=== PATIENT | female | born 1975 | race African-American/Black ===

== ENCOUNTER 2021-04-07 15:22 | Emergency (ER) | payer MEDICAID, MEDICARE ==
[~2021-04-07] VITALS: Ht 167.6 cm; Wt 95.0 kg
[2021-04-07 15:33] VITALS: BP 126/84
[2021-04-07] MEDS ORDERED: HYDROCODONE/ACETAMINOPHEN 5/325MG TABLET PO STA (16:04)
== END 2021-04-07 16:11 | disposition left against medical advice (07) ==
LOC: ER 15:22
DX: S09.93XA Unspecified injury of face, initial encounter (principal); Z98.890 Other specified postprocedural states; Z88.0 Allergy status to penicillin; X58.XXXA Exposure to other specified factors, initial encounter; Y93.89 Activity, other specified; Y92.89 Other specified places as the place of occurrence of the external cause; Y99.8 Other external cause status
CPT/HCPCS: 99281

== ENCOUNTER 2021-05-31 03:01 | Emergency (ER) | payer OTHER ==
[~2021-05-31] VITALS: Ht 167.6 cm; Wt 91.0 kg
[2021-05-31 05:19] LABS: BASOPHILS % 1.2 % (0.0-2.0); EOSINOPHILS % 7.4 % (0.0-5.0); HEMATOCRIT. 41.8 % (36.0-48.0); HEMOGLOBIN. 13.9 g/dL (12.0-16.0); LYMPHOCYTES % 45.9 % (20.0-50.0); MEAN CORPUSCULAR HEMOGLOBIN 29.7 pg (28.0-32.0); MEAN CORPUSCULAR VOLUME 89.1 fL (81.0-99.0); MEAN PLATELET VOLUME 7.8 fl (7.4-10.4); MONOCYTES % 8.8 % (2.0-8.0); NEUTROPHILS % 36.7 % (40.0-76.0); PLATELET 353 x1000/uL (130-400); RED CELL DISTRIBUTION WIDTH 16.7 % (11.6-14.6)
[2021-05-31 05:21] LABS: CHLORIDE 107 mEq/L (98-107)
[2021-05-31] MEDS ORDERED: ONDA4TAB5 PO (05:53)
[2021-05-31] MEDS ORDERED: TOPUD PO (05:53)
[2021-05-31 06:03] VITALS: BP 112/84
== END 2021-05-31 06:04 | disposition home or self-care (01) ==
LOC: ER 03:01
DX: U07.1 COVID-19 (principal); M32.9 Systemic lupus erythematosus, unspecified; I10 Essential (primary) hypertension; Z88.3 Allergy status to other anti-infective agents; Z86.19 Personal history of other infectious and parasitic diseases; Z98.890 Other specified postprocedural states
CPT/HCPCS: 36415; 71045; 80053; 85025; 87426; 93005; 99285

== ENCOUNTER 2021-06-01 20:52 | Emergency (ER) | payer MEDICARE, OTHER ==
[~2021-06-01 20:52] MED LIST: ONDA4TAB5 PO; TOPUD PO
== END 2021-06-02 01:33 | disposition left against medical advice (07) ==
LOC: ER 20:52
DX: Z53.21 Procedure and treatment not carried out due to patient leaving prior to being seen by health care provider (principal)

== ENCOUNTER 2021-10-23 10:00 | Emergency (ER) | payer MEDICARE, OTHER ==
[~2021-10-23] VITALS: Ht 170.2 cm; Wt 70.0 kg
[2021-10-23 11:06] VITALS: BP 127/79
[2021-10-23] MEDS ORDERED: LIDOCAINE 5% PATCH TOP STA (11:26)
[2021-10-23] MEDS ORDERED: IBUPROFEN 400MG TABLET PO ONE (11:30)
[2021-10-23] MEDS ORDERED: ACETAMINOPHEN 325MG TABLET PO ONE (11:30)
[2021-10-23] MEDS ORDERED: TOPUD PO (11:36)
[2021-10-23] MEDS ORDERED: TOPUD MT (11:36)
[2021-10-23] MEDS ORDERED: IBUP-2028 MT (11:36)
[2021-10-23] MEDS ORDERED: LIDO700A30 TP (11:37)
== END 2021-10-23 19:00 | disposition home or self-care (01) ==
LOC: ER 10:49
DX: M79.601 Pain in right arm (principal); I10 Essential (primary) hypertension; M32.9 Systemic lupus erythematosus, unspecified; E03.9 Hypothyroidism, unspecified; Z86.19 Personal history of other infectious and parasitic diseases
CPT/HCPCS: 73030; 93005; 99284

== ENCOUNTER 2023-11-06 22:22 | Emergency (ER) | payer MEDICARE, MEDICAID ==
[~2023-11-06] VITALS: Ht 167.6 cm; Wt 97.0 kg
[~2023-11-06 22:22] MED LIST changes: +IBUP-2028 MT; +LIDO700A30 TP; +TOPUD MT
[2023-11-06 22:41] VITALS: O2SAT 96
[2023-11-06 23:28] LABS: BASOPHILS % 1.2 % (0.0-2.0); EOSINOPHILS % 9.5 % (0.0-5.0); HEMATOCRIT. 41.1 % (36.0-48.0); HEMOGLOBIN. 13.9 g/dL (12.0-16.0); LYMPHOCYTES % 29.1 % (20.0-50.0); MEAN CORPUSCULAR HEMOGLOBIN 31.9 pg (28.0-32.0); MEAN CORPUSCULAR HGB CONC 33.7 g/dL (31.0-37.0); MEAN CORPUSCULAR VOLUME 94.6 fL (81.0-99.0); MEAN PLATELET VOLUME 7.3 fl (7.4-10.4); MONOCYTES % 10.9 % (2.0-8.0); NEUTROPHILS % 49.3 % (40.0-76.0); PLATELET 310 x1000/uL (130-400); RED BLOOD CELL COUNT 4.35 mill/uL (4.2-5.4); RED CELL DISTRIBUTION WIDTH 14.5 % (11.6-14.6); WHITE BLOOD COUNT 5.1 x1000/uL (4.5-11.0)
[2023-11-06 23:38] LABS: CHLORIDE 110 mEq/L (98-107); POTASSIUM 3.8 mEq/L (3.5-5.1); SODIUM 140 mEq/L (136-145)
[2023-11-06 23:39] LABS: CARBON DIOXIDE 23 mEq/L (21-32)
[2023-11-06 23:44] LABS: GLUCOSE 86 mg/dL (70-105); UREA NITROGEN BLOOD 14 mg/dL (9-23)
[2023-11-07 00:39] LABS: HCG SCREEN NEGATIVE
[2023-11-07 02:28] VITALS: BP 140/82; PULSE 82; RESP 16; TEMP 99
== END 2023-11-07 02:47 | disposition home or self-care (01) ==
LOC: ER 22:22
DX: M79.89 Other specified soft tissue disorders (principal); I10 Essential (primary) hypertension; Z88.0 Allergy status to penicillin; Z98.890 Other specified postprocedural states; Z86.39 Personal history of other endocrine, nutritional and metabolic disease
CPT/HCPCS: 36415; 71045; 80048; 84703; 85025; 93970; 99284

== ENCOUNTER 2024-08-29 21:09 | Emergency (ER) | payer OTHER, MEDICAID ==
[~2024-08-29] VITALS: Ht 172.7 cm; Wt 60.0 kg
[~2024-08-29 21:09] MED LIST changes: +METO25TA6 MT
[2024-08-29 21:11] VITALS: O2SAT 100
[2024-08-29 21:18] VITALS: BP 144/97; PULSE 81; RESP 16; TEMP 36.6; O2SAT 100
[2024-08-29 21:46] LABS: BASOPHILS % 1.7 % (0.0-2.0); EOSINOPHILS % 4.9 % (0.0-5.0); HEMATOCRIT. 46.8 % (36.0-48.0); HEMOGLOBIN. 15.3 g/dL (12.0-16.0); LYMPHOCYTES % 49.2 % (20.0-50.0); MEAN CORPUSCULAR HEMOGLOBIN 31.1 pg (28.0-32.0); MEAN CORPUSCULAR HGB CONC 32.7 g/dL (31.0-37.0); MEAN CORPUSCULAR VOLUME 95.1 fL (81.0-99.0); MEAN PLATELET VOLUME 7.7 fl (7.4-10.4); MONOCYTES % 8.2 % (2.0-8.0); PLATELET 365 x1000/uL (130-400); RED BLOOD CELL COUNT 4.92 mill/uL (4.2-5.4); RED CELL DISTRIBUTION WIDTH 13.7 % (11.6-14.6); WHITE BLOOD COUNT 6.6 x1000/uL (4.5-11.0)
[2024-08-29 21:51] LABS: CHLORIDE 108 mEq/L (98-107); POTASSIUM 4.3 mEq/L (3.5-5.1); SODIUM 143 mEq/L (136-145)
[2024-08-29 21:52] LABS: CALCIUM 10.1 mg/dL (8.7-10.4); CARBON DIOXIDE 30 mEq/L (21-32)
[2024-08-29 21:57] LABS: GLUCOSE 90 mg/dL (70-105); UREA NITROGEN BLOOD 12 mg/dL (9-23)
[2024-08-29 22:40] LABS: CLARITY URINE CLOUDY (CLEAR); COLOR URINE YELLOW (YELLOW); GLUCOSE URINE NEGATIVE (NEGATIVE); KETONES URINE TRACE (NEGATIVE); LEUKOCYTE ESTERASE URINE 1+ (NEGATIVE); NITRITE URINE NEGATIVE (NEGATIVE); OCCULT BLOOD URINE NEGATIVE (NEGATIVE); PH URINE 6.5 (4.5-8.0); PROTEIN URINE NEGATIVE (NEGATIVE); SPECIFIC GRAVITY URINE 1.023 (1.005-1.030)
[2024-08-29 22:56] LABS: BACTERIA URINE TRACE; RBC URINE NONE SEEN /hpf (0-2); SQUAMOUS EPITHELIAL CELL URINE 1+ /lpf (RARE/1+)
[2024-08-30 00:37] LABS: ALANINE AMINOTRANSFERASE 31 IU/L (10-49)
[2024-08-30 00:38] LABS: ALBUMIN 4.1 g/dL (3.2-4.8); ASPARTATE AMINOTRANSFERASE 29 IU/L (<34); BILIRUBIN DIRECT < 0.1 mg/dL (<=3.0); BILIRUBIN TOTAL 0.3 mg/dL (0.1-1.0); CREATINE KINASE 289 IU/L (34-145); PROTEIN TOTAL 6.9 g/dL (6.0-8.3)
[2024-08-30] MEDS: KETOROLAC 30MG/ML VIAL IM ONE (00:39)
== END 2024-08-30 01:39 | disposition left against medical advice (07) ==
LOC: ER 22:28
DX: M06.9 Rheumatoid arthritis, unspecified (principal); I10 Essential (primary) hypertension; E03.9 Hypothyroidism, unspecified; Z88.0 Allergy status to penicillin
CPT/HCPCS: 99283; 80076; 80048; 81003; 82550; 85025; 36415; 96372; J1885

== ENCOUNTER 2024-10-18 16:20 | Emergency (ER) | payer OTHER, MEDICAID ==
[~2024-10-18] VITALS: Ht 167.6 cm; Wt 91.0 kg
[2024-10-18 18:18] LABS: BASOPHILS % 1.1 % (0.0-2.0); EOSINOPHILS % 5.7 % (0.0-5.0); HEMATOCRIT. 46.2 % (36.0-48.0); HEMOGLOBIN. 15.7 g/dL (12.0-16.0); LYMPHOCYTES % 8.7 % (20.0-50.0); MEAN CORPUSCULAR HEMOGLOBIN 31.7 pg (28.0-32.0); MEAN CORPUSCULAR HGB CONC 33.9 g/dL (31.0-37.0); MEAN CORPUSCULAR VOLUME 93.4 fL (81.0-99.0); MEAN PLATELET VOLUME 7.8 fl (7.4-10.4); MONOCYTES % 9.2 % (2.0-8.0); NEUTROPHILS % 75.3 % (40.0-76.0); PLATELET 305 x1000/uL (130-400); RED BLOOD CELL COUNT 4.94 mill/uL (4.2-5.4); RED CELL DISTRIBUTION WIDTH 14.1 % (11.6-14.6); WHITE BLOOD COUNT 6.4 x1000/uL (4.5-11.0)
[2024-10-18 18:28] LABS: PROTHROMBIN TIME 10.9 sec (9.6-11.0)
[2024-10-18 18:33] LABS: POTASSIUM 3.8 mEq/L (3.5-5.1)
[2024-10-18] MEDS: SODIUM CHLORIDE 0.9% 1,000 ML IV ONE (18:33)
[2024-10-18] MEDS: KETOROLAC 30MG/ML VIAL IM ONE (18:33)
[2024-10-18] MEDS: ONDANSETRON 4MG ODT PO ONE (18:34)
[2024-10-18] MEDS: ACETAMINOPHEN 325MG TABLET PO ONE (18:34)
[2024-10-18] MEDS: PREDNISONE 20MG TABLET PO STA (18:34)
[2024-10-18 18:35] LABS: CALCIUM 9.8 mg/dL (8.7-10.4)
[2024-10-18 18:39] LABS: CREATININE 1.2 mg/dL (0.6-1.0)
[2024-10-18] MEDS: ALBUTEROL (0.083%) 2.5MG/3ML NEB HHN STA (18:47)
[2024-10-18] MEDS: IPRATROPIUM BROMIDE (0.02%) 0.5MG/2.5ML NEB HHN STA (18:47)
[2024-10-18 18:48] VITALS: PULSE 113; RESP 15; O2SAT 100
[2024-10-18 19:17] VITALS: BP 152/83; PULSE 118; RESP 18; TEMP 37.8; O2SAT 96
[2024-10-18] MEDS ORDERED: IBUP-2029 MT (20:08)
[2024-10-18] MEDS ORDERED: ONDA-239 PO (20:08)
[2024-10-18] MEDS ORDERED: ALBU18HF2 IH (20:08)
[2024-10-18] MEDS ORDERED: BENZ200C52 MT (20:08)
[2024-10-18 21:08] LABS: INFLUENZA TYPE A Presumptive Negative (Pres. Neg.)
[2024-10-18 21:09] LABS: INFLUENZA TYPE B Presumptive Negative (Pres. Neg.)
== END 2024-10-18 21:09 | disposition home or self-care (01) ==
LOC: ER 16:31
DX: U07.1 COVID-19 (principal); R05.9 Cough, unspecified; R09.81 Nasal congestion; I10 Essential (primary) hypertension; E03.9 Hypothyroidism, unspecified; Z79.899 Other long term (current) drug therapy; Z88.0 Allergy status to penicillin
CPT/HCPCS: 99285; 96360; 71045; 87426; 80048; 85025; 85610; 87804 ×2; 36415; 94640; 93005; 96372; J1885; Q0162; J7512; J7030; 94664

== ENCOUNTER 2025-03-11 20:35 | Emergency (ER) | payer MEDICAID, OTHER ==
[~2025-03-11] VITALS: Ht 167.6 cm; Wt 78.0 kg
[~2025-03-11 20:35] MED LIST changes: +ALBU18HF2 IH; +BENZ200C52 MT; +IBUP-1455 MT; +ONDA-239 PO
[2025-03-11 20:37] VITALS: O2SAT 97
[2025-03-11 21:31] VITALS: BP 132/86; PULSE 88; RESP 16; TEMP 36.5; O2SAT 97
== END 2025-03-11 21:32 | disposition home or self-care (01) ==
LOC: ER 20:35
DX: F19.129 Other psychoactive substance abuse with intoxication, unspecified (principal); E03.9 Hypothyroidism, unspecified; I10 Essential (primary) hypertension; M19.90 Unspecified osteoarthritis, unspecified site; Z88.0 Allergy status to penicillin; Z79.899 Other long term (current) drug therapy
CPT/HCPCS: 71045; 99283